=== PATIENT | male | born 1970 | race Caucasian/White ===

== ENCOUNTER 2019-01-15 10:10 | Emergency (ER) | payer SELFPAY ==
--- NOTE | 2019-01-15 11:53 | XRAY Report ---
Reason: chest pain Procedure Date: 01/15/2019 Accession Number: [id number] / [id number] Procedure: XR - Chest 2 View X-Ray CPT Code: 91892 FULL RESULT: EXAM: CHEST RADIOGRAPHY EXAM DATE: 01/15/2019 11:40 AM HISTORY: chest pain COMPARISON: NONE TECHNIQUE: Two Views FINDINGS: Lungs/Pleura: The lungs are clear. No consolidation, edema or pleural effusion. Nipple shadows are noted. Cardiomediastinal silhouette: Unremarkable accounting for technique. Other: Port venous catheter from the left in good position. IMPRESSION: No acute disease. RADIA
[2019-01-15 11:55] LABS: BASOPHILS # (AUTO) 0.1 10^3/uL (0.0-0.1); BASOPHILS % (AUTO) 0.5 %; EOSINOPHILS # (AUTO) 0.1 10^3/uL (0.0-0.7); EOSINOPHILS % (AUTO) 0.8 %; HGB - HEMOGLOBIN 15.2 g/dL (14.0-18.0); LYMPHOCYTES # (AUTO) 1.6 10^3/uL (1.5-3.5); LYMPHOCYTES % (AUTO) 16.1 %; MEAN CORPUSCULAR HEMOGLOBIN 31.1 pg (27.0-31.0); MEAN CORPUSCULAR HGB CONC 33.2 g/dL (32.0-36.0); MEAN CORPUSCULAR VOLUME 93.7 fL (80.0-94.0); MEAN PLATELET VOLUME 9.1 fL (7.4-11.4); MONOCYTES % (AUTO) 10.7 %; NEUTROPHILS # (AUTO) 6.9 10^3/uL (1.5-6.6); NEUTROPHILS % (AUTO) 71.3 %; PLT - PLATELET COUNT 242 10^3/uL (130-450); RED BLOOD COUNT 4.89 10^6/uL (4.70-6.10); RED CELL DISTRIBUTION WIDTH 15.1 % (12.0-15.0); WHITE BLOOD COUNT 9.7 x10^3/uL (4.8-10.8)
[2019-01-15] MEDS ORDERED: BENZONATATE 100 MG CAPSULE PO STA (12:02)
[2019-01-15] MEDS ORDERED: oxyCODONE 5 MG TABLET PO STA (12:02)
--- NOTE | 2019-01-15 12:05 | ED Physician Documentation ---
PD HPI CHEST PAIN - Stated complaint Stated Complaint: CP/CONGESTION/ZUÑIGA - Chief complaint Chief Complaint: Resp - History obtained from History obtained from: Patient - History of Present Illness Timing - onset: Other (49-year-old gentleman with remote history of lymphoma and was in remission comes in with 2 complaints, one is his ports been bothering him kind of subacutely, he would like a referral to have it out. No acute complaints there. Secondly, since yesterday he has had a productive cough with clear sputum, and reactive headache that is throbbing related to that. He has not tried anything at home for it. He denies shortness of breath or fever. No history of asthma/COPD etc.) Review of Systems Ten Systems: 10 systems reviewed and negative Constitutional: denies: Fever, Chills Nose: reports: Rhinorrhea / runny nose Throat: denies: Sore throat Cardiac: reports: Chest pain / pressure (left side at port x mos). denies: Palpitations Respiratory: reports: Cough. denies: Dyspnea, Hemoptysis, Wheezing PD PAST MEDICAL HISTORY - Past Medical History Past Medical History: Yes Other Past Medical History: Hx of lymphoma - Present Medications Home Medications: Ambulatory Orders Medication Instructions Recorded Confirmed Benzonatate [Tessalon Perle] 100 - 200 mg PO TID PRN #30 capsule 01/15/19 Oxycodone HCl/Acetaminophen 1 - 2 each PO Q6H PRN #14 tablet 01/15/19 [Percocet 5-325 mg Tablet] - Allergies Allergies/Adverse Reactions: Allergies Allergy/AdvReac Type Severity Reaction Status Date / Time No Known Drug Allergies Allergy Verified 01/15/19 10:26 - Social History Does the pt smoke?: Yes Smoking Status: Current every day smoker PD ED PE NORMAL - Vitals Vital signs reviewed: Yes - General General: Alert and oriented X 3, Other (Frequent bronchitic cough otherwise in no distress) - HEENT HEENT: PERRL, EOMI - Neck Neck: Supple, no meningeal sign, No bony TTP - Cardiac Cardiac: RRR, No murmur - Respiratory Respiratory: No respiratory distress, Clear bilaterally, Other (Port site left upper chest wall without evidence of infection or complication) - Abdomen Abdomen: Non tender - Extremities Extremities: No edema, No calf tenderness / cord - Neuro Neuro: Alert and oriented X 3, 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, Normal speech Results - Vitals Vitals: Vital Signs - 24 hr 01/15/19 01/15/19 10:20 11:51 Temperature 36.9 C Heart Rate 104 H 93 Respiratory 20 19 Rate Blood Pressure 130/92 H 139/74 H O2 Saturation 98 99 Oxygen O2 Source Room air - EKG (time done) 1027 Rate: Rate (enter#) (92) Rhythm: NSR [place]: Normal Intervals: Normal DC QRS: Normal Ischemia: Normal ST segments Computer interpretation: Agree with computer - Labs Labs: Laboratory Tests 01/15/19 01/15/19 01/15/19 11:50 11:50 11:50 WBC 9.7 RBC 4.89 Hgb 15.2 Hct 45.8 MCV 93.7 MCH 31.1 H MCHC 33.2 RDW 15.1 H Plt Count 242 MPV 9.1 Neut # (Auto) 6.9 H Lymph # (Auto) 1.6 [place] # (Auto) 1.0 Eos # (Auto) 0.1 Baso # (Auto) 0.1 Absolute Nucleated RBC 0.00 Nucleated RBC % 0.0 D-Dimer 240.9 Sodium 142 Potassium 4.1 Chloride 103 Carbon Dioxide 30 Anion Gap 9.0 BUN 16 Creatinine 0.9 Estimated GFR (MDRD) 90 Glucose 121 H Calcium 10.5 H Total Bilirubin 0.5 AST 25 ALT 31 Alkaline Phosphatase 69 Troponin I High Sens Total Protein 8.3 H Albumin 4.3 Globulin 4.0 Albumin/Globulin Ratio 1.1 Lipase 23 01/15/19 11:50 WBC RBC Hgb Hct MCV MCH MCHC RDW Plt Count MPV Neut # (Auto) Lymph # (Auto) [place] # (Auto) Eos # (Auto) Baso # (Auto) Absolute Nucleated RBC Nucleated RBC % D-Dimer Sodium Potassium Chloride Carbon Dioxide Anion Gap BUN Creatinine Estimated GFR (MDRD) Glucose Calcium Total Bilirubin AST ALT Alkaline Phosphatase Troponin I High Sens 8.9 Total Protein Albumin Globulin Albumin/Globulin Ratio Lipase PD MEDICAL DECISION MAKING - ED course ED course: This is a 49-year-old gentleman who presents with 2 complaints. He needs a referral to have his port out and I will give him the name of a local surgeon. Secondly he has a cough and is causing a headache. His chest x-ray is clear. Departure - Departure Disposition: 01 Home, Self Care Clinical Impression: Respiratory infection Chest pain Qualifiers: Chest pain type: unspecified Qualified Code(s): R07.9 - Chest pain, unspecified Condition: Good Record reviewed to determine appropriate education?: Yes Instructions: ED Chest Pain NonCardiac, ED Viral Syndrome Follow-Up: Sid Orourke MD [Provider Admit Priv/Credential] - (TO HAVE YOUR PORT OUT) Prescriptions: Benzonatate [Tessalon Perle] 100 - 200 mg PO TID PRN #30 capsule PRN Reason: Cough Oxycodone HCl/Acetaminophen [Percocet 5-325 mg Tablet] 1 - 2 each PO Q6H PRN #14 tablet PRN Reason: pain Comments: Your chest x-ray is clear, your blood work shows no evidence of heart issue or blood clots. Your EKG is normal. Follow-up with the surgeon on this form for evaluation for port removal. Follow-up with your primary care physician, next available appointment. Return for new worsening symptoms.
[2019-01-15 12:12] LABS: ALBUMIN 4.3 g/dL (3.2-5.5); ALBUMIN/GLOBULIN RATIO 1.1 (1.0-2.2); BILIRUBIN,TOTAL 0.5 mg/dL (0.2-1.0); CALCIUM 10.5 mg/dL (8.5-10.3); CREATININE 0.9 mg/dL (0.6-1.2); TOTAL PROTEIN 8.3 g/dL (6.7-8.2)
[2019-01-15 12:47] VITALS: BP 134/67
== END 2019-01-15 12:44 | disposition home or self-care (01) ==
LOC: ED 10:10
DX: J98.8 Other specified respiratory disorders (principal); Z76.89 Persons encountering health services in other specified circumstances; F17.200 Nicotine dependence, unspecified, uncomplicated
CPT/HCPCS: 36415; 71046; 80053; 83690; 84484; 85025; 85379; 93005; 99284; A9270

== ENCOUNTER 2023-11-15 13:09 | Emergency (ER) | payer MEDICAID ==
--- NOTE | 2023-11-15 15:23 | ED Physician Documentation ---
History of Present Illness - Stated complaint Stated Complaint: MED REFILL - Chief complaint Chief Complaint: General - History obtained from History obtained from: Patient (The bus to go to the methadone clinic was late today and missed his appointment. Request his methadone dosing which is 135 mg) PD PAST MEDICAL HISTORY - Past Medical History Cardiovascular: None Respiratory: None Neuro: None Endocrine/Autoimmune: None GI: None : None HEENT: None Psych: Other Musculoskeletal: None Derm: None - Past Surgical History Past Surgical History: No - Present Medications Home Medications: Ambulatory Orders Medication Instructions Recorded Confirmed Albuterol Sulfate [Proair 1 - 2 puffs IH Q4HR PRN 06/02/23 11/15/23 Digihaler] Methadone [Methadone Hcl] 135 mg PO DAILY 06/02/23 11/15/23 - Allergies Allergies/Adverse Reactions: Allergies Allergy/AdvReac Type Severity Reaction Status Date / Time No Known Drug Allergies Allergy Verified 06/02/23 12:34 - Social History Does the pt smoke?: Yes Smoking Status: Current every day smoker Does the pt drink ETOH?: No Does the pt have substance abuse?: No - Immunizations Immunizations are current?: No - POLST Patient has POLST: No PD ED PE NORMAL - General General: Alert and oriented X 3, No acute distress Results - Vitals Vitals: Vital Signs - 24 hr 11/15/23 11/15/23 13:15 16:35 Temperature 36.8 C Heart Rate 81 78 Respiratory 16 18 Rate Blood Pressure 125/84 H 142/88 H O2 Saturation 96 100 Oxygen O2 Source Room air PD Medical Decision Making - ED course ED course: He was administered his dose of Ativan here but discussed with him that with this would only be a rare occasion that we would give him methadone in the emergency department. Departure - Departure Disposition: Home, Self Care Clinical Impression: Narcotic dependence Condition: Good Record reviewed to determine appropriate education?: Yes Comments: As discussed, we will only very occasionally treat you with methadone in the emergency department so you may want to get an earlier bus going forward as we will not routinely give the methadone. Forms: PCP List Discharge Date/Time: 11/15/23 15:55
[2023-11-15] MEDS: METHADONE 50 MG/5 ML ORAL SYRINGE PO ONE (15:50)
[2023-11-15 16:35] VITALS: BP 142/88; O2SAT 100
== END 2023-11-15 15:55 | disposition home or self-care (01) ==
LOC: ED 13:09
DX: Z76.0 Encounter for issue of repeat prescription (principal); F11.20 Opioid dependence, uncomplicated; F17.200 Nicotine dependence, unspecified, uncomplicated
CPT/HCPCS: 99283